=== PATIENT | male | born 1965 | race Caucasian/White ===

== ENCOUNTER 2018-01-04 15:42 | Emergency (ER) | payer MEDICAID, OTHER ==
[~2018-01-04] VITALS: Ht 170.2 cm; Wt 76.8 kg
[2018-01-04 16:21] LABS: BASOPHILS % (AUTO) 0.4 % (0-1); EOSINOPHILS # (AUTO) 0.2 X10'3 (0-0.9); EOSINOPHILS % (AUTO) 3.7 % (0-6); HEMATOCRIT 40.4 % (42.0-52.0); HEMOGLOBIN 14.4 g/dl (14.0-17.9); LYMPHOCYTES # (AUTO) 1.3 X10'3 (1.1-4.8); MEAN CORPUSCULAR HEMOGLOBIN 32.8 PG (27.0-31.0); MEAN CORPUSCULAR HGB CONC 35.6 % (33.0-36.5); MEAN CORPUSCULAR VOLUME 92.2 FL (78-98); MEAN PLATELET VOLUME 7.1 FL (7.4-10.4); MONOCYTES # (AUTO) 0.6 X10'3 (0-0.9); MONOCYTES % (AUTO) 9.7 % (2-12); NEUTROPHILS # (AUTO) 3.9 X10'3 (1.8-7.7); NEUTROPHILS % (AUTO) 65.2 % (42-75); PLATELET COUNT 264 X10'3 (140-440); RED BLOOD COUNT 4.38 X10'6 (4.70-6.10); RED CELL DISTRIBUTION WIDTH 12.7 % (11.5-14.5); WHITE BLOOD COUNT 5.9 X10'3 (4.5-11.0)
[2018-01-04 16:23] LABS: CLARITY,URINE SLIGHTLY CLOUDY (Clear); COLOR,URINE AMBER (Yellow); GLUCOSE, URINE NEGATIVE (Neg); KETONES,URINE TRACE mg/dl (Neg); LEUKOCYTE ESTERASE ,URINE NEGATIVE (Neg); NITRITES, URINE NEGATIVE (Neg); OCCULT BLOOD,URINE NEGATIVE (Neg); PROTEIN,URINE 30 mg/dl (Neg)
[2018-01-04 16:32] LABS: UA COLLECTION TYPE CLN CATCH MIDSTREAM
[2018-01-04 16:32] LABS: PROTHROMBIN TIME 10.4 SECONDS (9.0-12.0)
[2018-01-04 16:33] LABS: BACTERIA,URINE FEW /HPF (Neg); COARSE GRANULAR CAST 0-3 /LPF (NEGATIVE); HYALINE CASTS 0-3 /LPF (NEGATIVE); MUCUS STRANDS MANY /LPF (Neg); RBC,URINE 0-2 /HPF (0-2); SQUAMOUS EPITHELIAL CELL,UR FEW /LPF (FEW); WBC,URINE 0-4 /HPF (0-4)
[2018-01-04 16:39] LABS: ALANINE AMINOTRANSFERASE 77 U/L (12-78); ALBUMIN 3.9 G/DL (3.4-5.0); ALKALINE PHOSPHATASE 113 IU/L (46-116); ANION GAP 11 (8-16); ASPARTATE AMINO TRANSFERASE 61 U/L (10-37); BILIRUBIN,TOTAL 0.8 MG/DL (0.1-1.0); BLOOD UREA NITROGEN 22 MG/DL (7-18); CALCIUM 9.8 MG/DL (8.5-10.1); CHLORIDE 102 MMOL/L (99-107); GLUCOSE 96 MG/DL (70-104); POTASSIUM 3.6 MMOL/L (3.5-5.1); SODIUM 141 MMOL/L (135-145); TOTAL CARBON DIOXIDE 27.7 MMOL/L (24-32); TOTAL PROTEIN 7.8 G/DL (6.4-8.2); eGFR 71 ML/MIN
[2018-01-04] MEDS ORDERED: pantoprazole 40mg Tablet.DR PO ONE (19:30)
[2018-01-04] MEDS ORDERED: mag hydrox/Alum hydrox/simeth 30ml oral suspension PO ONE (19:30)
[2018-01-04] MEDS ORDERED: LIDOcaine Viscous 15ml cup PO ONE (19:30)
[2018-01-04] MEDS ORDERED: famotidine 20mg tablet PO ONE (19:30)
[2018-01-04] MEDS ORDERED: PANT-47 PO (20:06)
[2018-01-04 20:26] VITALS: BP 140/88
== END 2018-01-04 20:26 | disposition home or self-care (01) ==
LOC: ER 15:43
DX: K21.9 Gastro-esophageal reflux disease without esophagitis (principal); Z88.0 Allergy status to penicillin
CPT/HCPCS: 36415; 80053; 81001; 85025; 85610; 99284

== ENCOUNTER 2018-09-02 01:34 | Emergency (ER) | payer MEDICAID ==
[~2018-09-02] VITALS: Ht 167.6 cm; Wt 68.9 kg
[~2018-09-02 01:34] MED LIST: PANT-47 PO
[2018-09-02 01:37] VITALS: BP 119/85
== END 2018-09-02 02:01 | disposition home or self-care (01) ==
LOC: ER 01:34
DX: R52 Pain, unspecified (principal); Z00.8 Encounter for other general examination; K21.9 Gastro-esophageal reflux disease without esophagitis; Z88.0 Allergy status to penicillin; Z79.899 Other long term (current) drug therapy; Z59.0 Homelessness
CPT/HCPCS: 99281

== ENCOUNTER 2018-09-21 20:42 | Emergency (ER) | payer MEDICAID ==
[~2018-09-21] VITALS: Ht 177.8 cm; Wt 61.6 kg
[2018-09-21 20:44] VITALS: BP 114/72
== END 2018-09-21 21:14 | disposition home or self-care (01) ==
LOC: ER 20:42
DX: L02.414 Cutaneous abscess of left upper limb (principal); K21.9 Gastro-esophageal reflux disease without esophagitis; Z88.0 Allergy status to penicillin; Z79.899 Other long term (current) drug therapy
CPT/HCPCS: 10060; 99283

== ENCOUNTER 2020-06-13 15:42 | Emergency (ER) | payer MEDICAID ==
[2020-06-13 15:42] VITALS: BP 123/83
[2020-06-13] MEDS ORDERED: CLIN-97 PO (16:34)
[2020-06-13] MEDS ORDERED: HYDR-4383 PO (16:34)
[2020-06-13] MEDS ORDERED: clindamycin 150mg capsule PO ONE (16:40)
[2020-06-13] MEDS ORDERED: ketorolac trometh. 30mg/ml inj. IM ONE (16:40)
[2020-06-13] MEDS ORDERED: HYDROcodone/acetaminophen 5mg/325mg tablet PO ONE (16:40)
== END 2020-06-13 17:12 | disposition home or self-care (01) ==
LOC: ER 15:42
DX: K02.9 Dental caries, unspecified (principal); R68.84 Jaw pain; R51 Headache; K21.9 Gastro-esophageal reflux disease without esophagitis; F17.200 Nicotine dependence, unspecified, uncomplicated; H53.149 Visual discomfort, unspecified; Z72.89 Other problems related to lifestyle; Z88.0 Allergy status to penicillin; Z79.899 Other long term (current) drug therapy
CPT/HCPCS: 96372; 99283; J1885

== ENCOUNTER 2020-09-13 21:27 | Emergency (ER) | payer MEDICAID ==
[~2020-09-13] VITALS: Ht 167.6 cm; Wt 72.7 kg
[~2020-09-13 21:27] MED LIST changes: +CLIN-97 PO; +HYDR-4383 PO
[2020-09-13 21:53] VITALS: BP 123/89
[2020-09-13] MEDS ORDERED: MUPI22OI30 TOP (22:26)
== END 2020-09-13 22:43 | disposition home or self-care (01) ==
LOC: ER 21:28
DX: L03.115 Cellulitis of right lower limb (principal); K21.9 Gastro-esophageal reflux disease without esophagitis; F17.200 Nicotine dependence, unspecified, uncomplicated; F12.90 Cannabis use, unspecified, uncomplicated; F19.90 Other psychoactive substance use, unspecified, uncomplicated; Z72.89 Other problems related to lifestyle; Z59.0 Homelessness; Z88.0 Allergy status to penicillin; Z79.2 Long term (current) use of antibiotics; Z79.899 Other long term (current) drug therapy
CPT/HCPCS: 99283

== ENCOUNTER 2020-11-04 14:02 | Emergency (ER) | payer MEDICAID ==
[~2020-11-04] VITALS: Ht 167.6 cm; Wt 69.4 kg
[~2020-11-04 14:02] MED LIST changes: +LIDOcaine 1% W/epiNEPHrine 1:100,000 20ml vial ONE
[2020-11-04 14:27] VITALS: BP 127/88
[2020-11-04] MEDS ORDERED: LIDOcaine 1% W/epiNEPHrine 1:200,000 10ml vial IJ ONE (16:30)
[2020-11-04] MEDS ORDERED: SULF1TAB49 PO (16:34)
[2020-11-04] MEDS ORDERED: CEPH250T PO (16:34)
[2020-11-04] MEDS ORDERED: mupirocin 2% ointment 22GM TP STA (16:59)
[2020-11-04] MEDS ORDERED: mupirocin 2% ointment 22GM TP ONE (17:00)
== END 2020-11-04 17:15 | disposition home or self-care (01) ==
LOC: ER 14:02
DX: L02.416 Cutaneous abscess of left lower limb (principal); K21.9 Gastro-esophageal reflux disease without esophagitis; F12.90 Cannabis use, unspecified, uncomplicated; F19.90 Other psychoactive substance use, unspecified, uncomplicated; Z72.89 Other problems related to lifestyle; Z59.0 Homelessness; Z88.0 Allergy status to penicillin; Z79.2 Long term (current) use of antibiotics; Z79.899 Other long term (current) drug therapy
CPT/HCPCS: 10060; 99283

== ENCOUNTER 2021-02-20 02:11 | Emergency (ER) | payer MEDICAID ==
[~2021-02-20] VITALS: Ht 167.6 cm; Wt 63.0 kg
[~2021-02-20 02:11] MED LIST changes: -LIDOcaine 1% W/epiNEPHrine 1:100,000 20ml vial ONE
[2021-02-20 03:45] VITALS: BP 114/73
[2021-02-20] MEDS ORDERED: TETanus/Pertussis (Acell)/Diphther VAC/PF (Tdap-Adult) 0.5ml syringe IMVAC ONE (05:20)
[2021-02-20] MEDS ORDERED: acetaminophen 325mg tablet PO ONE (05:20)
[2021-02-20] MEDS ORDERED: bacitracin 15gm ointment TP ONE (05:20)
[2021-02-20] MEDS ORDERED: cephalexin 250mg capsule PO ONE (05:20)
[2021-02-20] MEDS ORDERED: sulfamethoxazole/trimethoprim DS (800/160mg) tablet PO ONE (05:20)
[2021-02-20] MEDS ORDERED: SULF1TAB49 PO (05:39)
[2021-02-20] MEDS ORDERED: CEPH-585 PO (05:39)
== END 2021-02-20 06:34 | disposition home or self-care (01) ==
LOC: ER 02:12
DX: S53.491A Other sprain of right elbow, initial encounter (principal); L03.113 Cellulitis of right upper limb; K21.9 Gastro-esophageal reflux disease without esophagitis; F12.90 Cannabis use, unspecified, uncomplicated; Z72.89 Other problems related to lifestyle; Z59.0 Homelessness; Z88.0 Allergy status to penicillin; Z79.899 Other long term (current) drug therapy; V19.9XXA Pedal cyclist (driver) (passenger) injured in unspecified traffic accident, initial encounter; Y93.89 Activity, other specified; Y92.488 Other paved roadways as the place of occurrence of the external cause; Y99.8 Other external cause status
CPT/HCPCS: 73080; 99284

== ENCOUNTER 2021-08-20 07:04 | Inpatient (IN) | payer MEDICAID ==
[~2021-08-20] VITALS: Ht 170.2 cm; Wt 81.8 kg
[~2021-08-20 07:04] MED LIST changes: +CEPH-585 PO
[2021-08-20] MEDS ORDERED: bisacodyl 5mg tablet.DR PO ONE (08:20)
[2021-08-20] MEDS ORDERED: ondansetron 4mg rapidly disintigrating tab PO ONE (08:20)
[2021-08-20 09:12] LABS: CLARITY,URINE SLIGHTLY CLOUDY (Clear); COLOR,URINE YELLOW (Yellow); PH,URINE 8.5 (4.8-8.0); UA COLLECTION TYPE NON-SPECIFIED
[2021-08-20 09:13] LABS: GLUCOSE, URINE NEGATIVE (Neg); KETONES,URINE TRACE mg/dl (Neg); LEUKOCYTE ESTERASE ,URINE NEGATIVE (Neg); NITRITES, URINE NEGATIVE (Neg); OCCULT BLOOD,URINE NEGATIVE (Neg); PROTEIN,URINE NEGATIVE (Neg); UROBILINOGEN,URINE 0.2 E.U/dL (0.2-1.0)
[2021-08-20 09:21] LABS: URINE AMPHETAMINE SCREEN POSITIVE (Neg); URINE BARBITUATE SCREEN NEGATIVE (Neg); URINE BENZODIAZEPINES SCREEN NEGATIVE (Neg); URINE CANNABINOID SCREEN POSITIVE (Neg); URINE COCAINE SCREEN NEGATIVE (Neg); URINE METHADONE SCREEN NEGATIVE (Neg); URINE OPIATE SCREEN NEGATIVE (Neg); URINE PHENCYCLIDINE SCREEN NEGATIVE (Neg)
[2021-08-20 09:29] LABS: MUCUS STRANDS MODERATE /LPF (Neg); SQUAMOUS EPITHELIAL CELL,UR NONE SEEN /LPF (FEW)
[2021-08-20 09:31] LABS: RBC,URINE 0-2 /HPF (0-2); WBC,URINE 0-4 /HPF (0-4)
[2021-08-20 09:32] LABS: BACTERIA,URINE FEW /HPF (Neg); YEAST FEW /HPF (NEGATIVE)
[2021-08-20 09:55] LABS: BASOPHILS % (AUTO) 0.2 % (0-1); EOSINOPHILS % (AUTO) 0 % (0-6); HEMATOCRIT 43.2 % (42.0-52.0); HEMOGLOBIN 14.4 g/dl (14.0-17.9); LYMPHOCYTES # (AUTO) 0.4 X10'3 (1.1-4.8); MEAN CORPUSCULAR HEMOGLOBIN 31.4 PG (27.0-31.0); MEAN CORPUSCULAR HGB CONC 33.2 g/dL (33.0-36.5); MEAN CORPUSCULAR VOLUME 94.6 FL (78-98); MEAN PLATELET VOLUME 6.7 FL (7.4-10.4); MONOCYTES # (AUTO) 1.3 X10'3 (0-0.9); MONOCYTES % (AUTO) 6.9 % (2-12); NEUTROPHILS # (AUTO) 16.4 X10'3 (1.8-7.7); NEUTROPHILS % (AUTO) 90.9 % (42-75); PLATELET COUNT 297 X10'3 (140-440); RED BLOOD COUNT 4.57 X10'6 (4.70-6.10); WHITE BLOOD COUNT 18.1 X10'3 (4.5-11.0)
[2021-08-20 10:11] LABS: ALANINE AMINOTRANSFERASE 66 U/L (12-78); ALBUMIN 3.2 G/DL (3.4-5.0); ALBUMIN/GLOBULIN RATIO 0.7 (1.1-1.5); ALKALINE PHOSPHATASE 145 IU/L (46-116); ANION GAP 10 (8-16); ASPARTATE AMINO TRANSFERASE 36 U/L (10-37); BILIRUBIN,TOTAL 0.9 MG/DL (0.1-1.0); BLOOD UREA NITROGEN 12 MG/DL (7-18); CALCIUM 8.6 MG/DL (8.5-10.1); CHLORIDE 101 MMOL/L (99-107); CREATININE 0.92 MG/DL (0.60-1.10); ETHANOL < 0.010 GM/DL (0.0-0.010); GLUCOSE 122 MG/DL (70-104); LIPASE < 50 U/L (73-393); POTASSIUM 3.9 MMOL/L (3.5-5.1); SODIUM 138 MMOL/L (135-145); TOTAL CARBON DIOXIDE 27.3 MMOL/L (24-32); TOTAL PROTEIN 7.5 G/DL (6.4-8.2); eGFR 86 ML/MIN
[2021-08-20 10:53] LABS: PLATELET ESTIMATE NORMAL; TOTAL CELLS COUNTED 100
[2021-08-20] MEDS ORDERED: CefTRIAXone 2gm/D5W 50ml BAG 50 ML IV ONE (11:30)
[2021-08-20] MEDS ORDERED: normal saline 1000ML IV soln IVB ONE ×2 (11:30)
[2021-08-20] MEDS ORDERED: azithromycin/NS 500mg/250ml 250 ML IV ONE (11:30)
[2021-08-20] MEDS: normal saline 1000ml 1,000 ML IV SCH ×2 (12:25→22:25)
[2021-08-20] MEDS: levoFLOXACIN-Levaquin 500mg/D5 100 ML IV SCH (12:25)
[2021-08-20] MEDS ORDERED: magnesium 4gm in 100ml NS 100 ML IV PRN (12:25)
[2021-08-20] MEDS ORDERED: ondansetron/PF 4mg/2ml inj IV PRN (12:25)
[2021-08-20] MEDS ORDERED: magnesium Cl slow-release 64mg tablet PO PRN (12:25)
[2021-08-20] MEDS ORDERED: acetaminophen 325mg tablet PO PRN (12:25)
[2021-08-20] MEDS ORDERED: potassium Cl 20 mEq SR tablet PO PRN ×2 (12:25)
[2021-08-20] MEDS ORDERED: potassium Cl 40MEQ/1/2NS 520ml 520 ML IV PRN ×2 (12:25)
[2021-08-20] MEDS ORDERED: magnesium 2GM in 50ml NS 50 ML IV PRN (12:25)
[2021-08-20] MEDS ORDERED: NO HOME MEDS (12:32)
[2021-08-20] MEDS: K and/or MAG REPLACEMENT MC SCH (20:00)
[2021-08-21] MEDS: K and/or MAG REPLACEMENT MC SCH (08:00)
[2021-08-21] MEDS: levoFLOXACIN-Levaquin 500mg/D5 100 ML IV SCH (08:02)
[2021-08-21 08:09] VITALS: BP 98/58
[2021-08-21 08:10] LABS: BASOPHILS % (AUTO) 0.2 % (0-1); EOSINOPHILS % (AUTO) 0.3 % (0-6); HEMATOCRIT 35.9 % (42.0-52.0); LYMPHOCYTES % (AUTO) 5.9 % (21-51); MEAN CORPUSCULAR HEMOGLOBIN 31.2 PG (27.0-31.0); MEAN CORPUSCULAR HGB CONC 33.5 g/dL (33.0-36.5); MEAN CORPUSCULAR VOLUME 93.1 FL (78-98); MEAN PLATELET VOLUME 6.8 FL (7.4-10.4); MONOCYTES # (AUTO) 0.7 X10'3 (0-0.9); MONOCYTES % (AUTO) 4.4 % (2-12); NEUTROPHILS # (AUTO) 14.3 X10'3 (1.8-7.7); NEUTROPHILS % (AUTO) 89.2 % (42-75); PLATELET COUNT 270 X10'3 (140-440); RED BLOOD COUNT 3.85 X10'6 (4.70-6.10); RED CELL DISTRIBUTION WIDTH 13.3 % (11.5-14.5); WHITE BLOOD COUNT 16.1 X10'3 (4.5-11.0)
[2021-08-21 08:19] LABS: ALBUMIN 2.2 G/DL (3.4-5.0); ANION GAP 6 (8-16); BLOOD UREA NITROGEN 12 MG/DL (7-18); BUN/CREATININE RATIO 13.2 (5.4-32.0); CALCIUM 8.1 MG/DL (8.5-10.1); CHLORIDE 108 MMOL/L (99-107); CREATININE 0.91 MG/DL (0.60-1.10); GLUCOSE 105 MG/DL (70-104); POTASSIUM 4.3 MMOL/L (3.5-5.1); SODIUM 139 MMOL/L (135-145); TOTAL CARBON DIOXIDE 24.7 MMOL/L (24-32); eGFR 87 ML/MIN
[2021-08-21] MEDS: normal saline 1000ml 1,000 ML IV SCH (08:25)
--- NOTE | 2021-08-21 11:43 | NUR ---
patient reports to RN that he is hungry 30 minutes ago,requested parts room clerk to page hospitalist for request a diet order.Told patient that RN will get him something to eat and water.Unable to locate patient at this time.
--- NOTE | 2021-08-21 11:47 | NUR ---
patient back in the room, smells like marijuana,denied drug use while outside,Marissa JULES at bedside,re iterate that he cannot leave the room since he is being admitted and has piv.
--- NOTE | 2021-08-21 12:09 | NUR ---
Dr. Samuel made aware as previous notes, said he will dc patient.
[2021-08-21] MEDS ORDERED: ONDA4TAB12 PO (12:25)
[2021-08-21] MEDS ORDERED: LEVO750T46 PO (12:25)
--- NOTE | 2021-08-21 12:33 | NUR ---
Pt refusing to stay in his room. Informed pt that he was discharged and we were awaiting his written paperwrk to be finished. Pt unwilling to stay and wait for paperwork. IV pulled from pt and he ambulated out of dept with a steady gait.
[2021-08-21] MEDS ORDERED: OMEP-50 PO (12:51)
== END 2021-08-21 12:35 | disposition home or self-care (01) | DRG 720 ==
LOC: ER 07:05 → ED HOLD 12:28 → UNDOADMIN 12:28
PROVIDERS: ADMIT Internal Medicine; ATTEND Internal Medicine
DX: A41.9 Sepsis, unspecified organism (principal); E27.8 Other specified disorders of adrenal gland; J18.9 Pneumonia, unspecified organism; F12.10 Cannabis abuse, uncomplicated; Z20.822 Contact with and (suspected) exposure to COVID-19; F17.210 Nicotine dependence, cigarettes, uncomplicated; K21.9 Gastro-esophageal reflux disease without esophagitis; K59.00 Constipation, unspecified; Z59.00 Homelessness unspecified; Z88.0 Allergy status to penicillin
CPT/HCPCS: 36415; 71045; 74176; 80048; 80053; 80305; 80320; 81001; 83605; 83690; 83735; 84145; 85007; 85025; 87040; 87070; 87635; 96361; 96365; 99285; C9803; G0378; J0456; J0696; J1956; J7030

== ENCOUNTER 2021-08-27 10:18 | Emergency (ER) | payer MEDICAID ==
[~2021-08-27] VITALS: Ht 167.6 cm; Wt 65.9 kg
[~2021-08-27 10:18] MED LIST changes: -CEPH-585 PO; -CLIN-97 PO; -HYDR-4383 PO; +LEVO750T46 PO; +OMEP-50 PO; +ONDA4TAB12 PO; -PANT-47 PO
[2021-08-27 10:36] VITALS: BP 136/86
[2021-08-27] MEDS ORDERED: acetaminophen 325mg tablet PO ONE (10:45)
[2021-08-27] MEDS ORDERED: magnesium oxide 400mg tablet PO ONE (10:45)
[2021-08-27] MEDS ORDERED: AZIT-63 PO (10:45)
[2021-08-27] MEDS ORDERED: azithromycin 250mg tablet PO ONE (10:45)
[2021-08-28] MEDS ORDERED: IBUP-1984 PO (16:53)
[2021-08-28] MEDS ORDERED: AZIT-72 PO (16:53)
== END 2021-08-27 11:30 | disposition home or self-care (01) ==
LOC: ER 10:18
DX: J18.9 Pneumonia, unspecified organism (principal); K21.9 Gastro-esophageal reflux disease without esophagitis; F12.10 Cannabis abuse, uncomplicated; Z59.00 Homelessness unspecified; Z88.0 Allergy status to penicillin
CPT/HCPCS: 71045; 93005; 99284

== ENCOUNTER 2021-08-28 16:23 | Emergency (ER) | payer MEDICAID ==
[~2021-08-28] VITALS: Ht 167.6 cm; Wt 63.6 kg
[~2021-08-28 16:23] MED LIST changes: +AZIT-63 PO
[2021-08-28 16:41] VITALS: BP 127/86
[2021-08-28] MEDS ORDERED: ibuprofen tablet 400 MG TABLET PO ONE (16:50)
[2021-08-28] MEDS ORDERED: azithromycin 250mg tablet PO ONE (16:50)
[2021-08-28] MEDS ORDERED: IBUP-1984 PO (16:53)
[2021-08-28] MEDS ORDERED: AZIT-72 PO (16:53)
== END 2021-08-28 17:26 | disposition home or self-care (01) ==
LOC: ER 16:23
DX: R06.02 Shortness of breath (principal)
CPT/HCPCS: 99283